=== PATIENT | female | born 1960 | race African-American/Black ===

== ENCOUNTER 2018-05-11 11:19 | Emergency (ER) | payer OTHER ==
[~2018-05-11] VITALS: Ht 160 cm; Wt 65.8 kg
[2018-05-11 11:44] VITALS: BP 173/82
[2018-05-11] MEDS: TETRACAINE 0.5% OPHTH SOLUTION 4ML BOTTLE. OS ONE (12:26)
[2018-05-11] MEDS: PROPARACAINE/FLUORESCEIN 0.5 ML OPHTH DROPS. OS ONE (12:26)
[2018-05-11] MEDS ORDERED: ERYT1OIN6 LEFTEYE (12:36)
[2018-05-11] MEDS ORDERED: HYDR-2761 PO (12:36)
--- NOTE | 2018-05-11 12:36 | PHYS DOC ---
Past Medical History Past Medical History: Hypertension Past Surgical History: , Hysterectomy, Other Additional Past Surgical Histo: Tumor R)breast Alcohol Use: Occasionally Drug Use: None Adult General Chief Complaint Chief Complaint: EYE PROBLEMS HPI HPI Patient is a 58 year old AA female who presents to the ER with complaints of left eye pain and tearing after being hit in the left eye with keys yesterday at work. Pt states that her vision is not changes, but reports blurring due to excessive tearing. She denies any injury to her R eye. She denies any crusting of her eyes after sleeping. CUrrently she rates her pain as 7/10. Review of Systems Review of Systems Constitutional: Denies fever or chills [] Eyes: See HPI HENT: Denies nasal congestion or sore throat [] Respiratory: Denies cough or shortness of breath [] Integument: Denies rash or skin lesions [] Neurologic: Denies headache, focal weakness or sensory changes [] Complete systems were reviewed and found to be within normal limits, except as documented in this note. Current Medications Current Medications Current Medications Medications (Trade) Dose Ordered Sig/[place] Start Time Stop Time Status Last Admin Dose Admin Erythromycin (Romycin) 0.25 inch 1X ONCE 05/11/18 12:45 05/11/18 12:46 DC 05/11/18 12:56 0.25 INCH Proparacaine HCl/ Fluorescein Sodium (Flucaine Eye Drops) 1 drop 1X ONCE 05/11/18 12:30 05/11/18 12:31 DC 05/11/18 12:26 1 DROP Tetracaine HCl (Tetracaine) 1 drop 1X ONCE 05/11/18 12:30 05/11/18 12:31 DC 05/11/18 12:26 1 DROP Allergies Allergies Allergies Coded Allergies Type Severity Reaction Last Updated Verified No Known Drug Allergies 08/16/15 No Physical Exam Physical Exam Constitutional: Well developed, well nourished, no acute distress, non-toxic appearance. [] HENT: Normocephalic, atraumatic, bilateral external ears normal, oropharynx moist, no oral exudates, nose normal. [] Eyes: PERRLA, EOMI, conjunctiva normal, no discharge. See fluorescein exam under procedures. [] Skin: Warm, dry, no erythema, no rash. [] Back: No tenderness, no CVA tenderness. [] Neurologic: Alert and oriented X 3, normal motor function, normal sensory function, no focal deficits noted. [] Psychologic: Affect normal, judgement normal, mood normal. [] Current Patient Data Vital Signs Vital Signs Date Time Temp Pulse Resp B/P (MAP) Pulse Ox O2 Delivery O2 Flow Rate FiO2 05/11/18 11:44 98.3 92 16 173/82 (112) 99 Room Air 98.3 EKG EKG [] Radiology/Procedures Radiology/Procedures []Using tetracaine and fluroscein the patient's eye was examined under Wood's lamp and an 1 mm area of uptake at approximately 6 o'clock was noted. Patient's ocular symptoms have stabilized while they have been evaluated in the department and are appropriate for outpatient work up. No evidence of ruptured globe, retinal detachment, acute angle closure glaucoma , or deep space infection. Plan for 24 hour ophthalmologic follow up. Course & Med Decision Making Course & Med Decision Making Pertinent Labs and Imaging studies reviewed. (See chart for details) Dx: corneal abrasion L eye Rx for erythromycin eye ointment and hydrocodone written. Follow up with eye doctor for reevaluation in 24-48 hours Patient verbalized an understanding of home care, medications, follow-up, and return to ED instructions and was in agreement with the plan of care. Staff Physician Addendum: I was working in the ER during the course of this patient's visit. I was available for consultation as needed, but I was not directly involved in the care of this patient. [] Dragon Disclaimer Dragon Disclaimer This electronic medical record was generated, in whole or in part, using a voice recognition dictation system. Departure Departure Impression: Primary Impression: Corneal abrasion, left Disposition: 01 HOME, SELF-CARE Condition: STABLE Referrals: NO PCP (PCP) Patient Instructions: Eye - Corneal Abrasion, [id number] Additional Instructions: Fill the prescriptions and use as directed. Advised to avoid wearing her fall slashes until pain has subsided. Follow-up with your eye doctor in the next 24- 48 hours for reevaluation. Return to the ER for symptoms worsen Scripts Hydrocodone Bit/Acetaminophen (HYDROCODONE-APAP 5-325 ) 1 Tab Tablet 1 TAB PO PRN Q6HRS PRN for PAIN for 2 Days, #8 TAB 0 Refills Prov: BOGLEO LAIRD APRN 05/11/18 Erythromycin Base (Erythromycin) 1 Gm Oint...g. 0.5 INCH LEFTEYE QID for 5 Days, #1 TUBE 0 Refills Prov: LEO DEJESUS APRN 05/11/18 Problem Qualifiers Primary Impression: Corneal abrasion, left Encounter type: initial encounter Qualified Codes: S05.02XA - Injury of conjunctiva and corneal abrasion without foreign body, left eye, initial encounter LEO DEJESUS APRN May 11, 2018 12:36 ZARIA VASQUEZ MD May 12, 2018 06:09
[2018-05-11] MEDS: ERYTHROMYCIN 0.5% OPHTH OINTMENT 1GM TUBE. OS ONE (12:56)
== END 2018-05-11 13:09 | disposition home or self-care (01) ==
LOC: ER 11:19
DX: S05.02XA Injury of conjunctiva and corneal abrasion without foreign body, left eye, initial encounter (principal); I10 Essential (primary) hypertension; W22.8XXA Striking against or struck by other objects, initial encounter; Y99.8 Other external cause status; Y92.69 Other specified industrial and construction area as the place of occurrence of the external cause; Y99.0 Civilian activity done for income or pay
CPT/HCPCS: 99283

== ENCOUNTER 2019-03-18 11:00 | Emergency (ER) | payer OTHER ==
[~2019-03-18] VITALS: Ht 160 cm; Wt 67.6 kg
[~2019-03-18 11:00] MED LIST: ERYT1OIN6 LEFTEYE; HYDR-2761 PO
[2019-03-18 11:27] VITALS: BP 177/84
[2019-03-18 11:40] LABS: BILIRUBIN,URINE NEGATIVE (NEG); CLARITY,URINE CLEAR; COLOR,URINE YELLOW; NITRITE,URINE NEGATIVE (NEG); PROTEIN,URINE NEGATIVE (NEG-TRACE)
[2019-03-18 11:46] LABS: SQUAMOUS EPITHELIAL CELL,UR MANY /LPF
[2019-03-18 11:47] LABS: BACTERIA,URINE MODERATE /HPF (0-FEW); RBC,URINE OCC /HPF (0-2)
--- NOTE | 2019-03-18 13:08 | RAD ---
CLINICAL HISTORY: Pain, spinal tendernesss COMPARISON: None available. TECHNIQUE: This CT study consists of contiguous axial images performed through the thoracic and lumbar spine. Sagittal and coronal reformatted images were also performed. FINDINGS: There is normal alignment of the spine. There is preservation of height of the vertebral bodies with normal bone density. The height of the intervertebral discs is maintained. There is no evidence of osseous spinal canal or neural foraminal stenosis. 4 mm pleural-based right lower lobe lung nodules (series 2 image 54, 67). A 2.6 cm left thyroid nodule is seen. This can be further assessed by thyroid ultrasound. A 1.8 cm exophytic left upper pole renal lesion is seen. Aortic calcifications are noted. IMPRESSION: 1. No evidence for acute fracture or subluxation. 2. A 2.6 cm left thyroid nodule is seen. This can be further assessed by thyroid ultrasound. Electronically signed by: William Funk MD (03/18/2019 1:06 PM) [facility]
[2019-03-18] MEDS ORDERED: KETOROLAC 60 MG/2 ML VIAL. IM ONE (13:30)
[2019-03-18] MEDS ORDERED: CYCL5TAB PO (13:55)
--- NOTE | 2019-03-18 13:56 | PHYS DOC ---
Past Medical History Past Medical History: Hypertension (MOUNIKACOLUMBA FANDANIELAEULALIA Perry APRN) Past Surgical History: , Hysterectomy, Other Additional Past Surgical Histo: Tumor R)breast (COLUMBA MAHMOODEULALIA Perry APRN) Alcohol Use: Occasionally Drug Use: None (MOUNIKAMITADANIELA Perry APRN) Adult General Chief Complaint Chief Complaint: BACK PAIN OR INJURY [facility] HPI Patient is a 59 year old female who presents with severe back pain. She states that she helped roll her mother, who is in the hospital, and her back pain has been increasing ever since. She denies spontaneous loss of bowel or bladder, saddle numbness or foot drop. She has tried taking [id number] analgesics with little relief. She feels like she has a spasming pain in her back. (TIMOTEOCOLUMBADANIELAEULALIA Perry APRN) Review of Systems Review of Systems Constitutional: Denies fever or chills [] Respiratory: Denies cough or shortness of breath [] Cardiovascular: No additional information not addressed in HPI [] GI: Denies abdominal pain, nausea, vomiting, bloody stools or diarrhea [] : Denies dysuria or hematuria [] Musculoskeletal: See history of present illness Integument: Denies rash or skin lesions [] Neurologic: Denies headache, focal weakness or sensory changes [] Endocrine: Denies polyuria or polydipsia [] All other systems were reviewed and found to be within normal limits, except as documented in this note. (CHANTEL MAHMOODFRIEDA Perry APRN) Current Medications Current Medications Current Medications Medications (Trade) Dose Ordered Sig/[facility] Start Time Stop Time Status Last Admin Dose Admin Ketorolac Tromethamine (Toradol Im) 60 mg 1X ONCE 03/18/19 13:30 03/18/19 13:31 DC 03/18/19 13:52 60 MG (ZARIA VASQUEZ MD) Allergies Allergies Allergies Coded Allergies Type Severity Reaction Last Updated Verified No Known Drug Allergies 08/16/15 No (ZARIA VASQUEZ MD) Physical Exam Physical Exam Constitutional: Well developed, well nourished, no acute distress, non-toxic appearance. [] Neck: Normal range of motion, no tenderness, supple, no stridor. [] Cardiovascular:Heart rate regular rhythm, no murmur [] Lungs & Thorax: Bilateral breath sounds clear to auscultation [] Abdomen: Bowel sounds normal, soft, no tenderness, no masses, no pulsatile masses. [] Skin: Warm, dry, no erythema, no rash. [] Back: Point spinal tenderness to her lumbar and thoracic spine noted, there is pain to her accessory muscles as well, no CVA tenderness. [] Extremities: No tenderness, no cyanosis, no clubbing, ROM intact, no edema. [] Neurologic: Alert and oriented X 3, normal motor function, normal sensory function, no focal deficits noted. [] Psychologic: Affect normal, judgement normal, mood normal. [] (DANIELA MAHMOOD APRN) Current Patient Data Vital Signs Vital Signs Date Time Temp Pulse Resp B/P (MAP) Pulse Ox O2 Delivery O2 Flow Rate FiO2 03/18/19 11:27 98.6 75 20 177/84 (115) 97 Room Air 98.6 (ZARIA VASQUEZ MD) Lab Values Laboratory Tests Test 03/18/19 11:25 Urine Collection Type Unknown Urine Color Yellow Urine Clarity Clear Urine pH 7.0 Urine Specific [place] 1.020 Urine Protein Negative mg/dL (NEG-TRACE) Urine Glucose (UA) Negative mg/dL (NEG) Urine Ketones (Stick) Negative mg/dL (NEG) Urine Blood Negative (NEG) Urine Nitrite Negative (NEG) Urine Bilirubin Negative (NEG) Urine Urobilinogen Dipstick 1.0 mg/dL (0.2 mg/dL) Urine Leukocyte Esterase Negative (NEG) Urine RBC Occ /HPF (0-2) Urine WBC 1-4 /HPF (0-4) Urine Squamous Epithelial Cells Many /LPF Urine Bacteria Moderate /HPF (0-FEW) Urine Mucus Mod /LPF (ZARIA VASQUEZ MD) EKG EKG [] (DANIELA MAHMOOD APRN) Radiology/Procedures Radiology/Procedures []PATIENT: RULA DE OLIVEIRACOUNT: [id number]#: [id number] : 1960 LOCATION: ER AGE: 59 SEX: F EXAM STATUS: REG ER ORD. PHYSICIAN: DANIELA MAHMOOD APRN REASON: point spinal tenderness PROCEDURE: CT LUMBAR SPINE WO CONTRAST CLINICAL HISTORY: Pain, spinal tendernesss COMPARISON: None available. TECHNIQUE: This CT study consists of contiguous axial images performed through the thoracic and lumbar spine. Sagittal and coronal reformatted images were also performed. FINDINGS: There is normal alignment of the spine. There is preservation of height of the vertebral bodies with normal bone density. The height of the intervertebral discs is maintained. There is no evidence of osseous spinal canal or neural foraminal stenosis. 4 mm pleural-based right lower lobe lung nodules (series 2 image 54, 67). A 2.6 cm left thyroid nodule is seen. This can be further assessed bPATIENT: RULA DE OLIVEIRACOUNT: [id number]#: [id number] : 1960 LOCATION: ER AGE: 59 SEX: F EXAM STATUS: REG ER ORD. PHYSICIAN: DANIELA MAHMOOD APRN REASON: point spinal tenderness PROCEDURE: CT THORACIC SPINE WO CONTRAST CLINICAL HISTORY: Pain, spinal tendernesss COMPARISON: None available. TECHNIQUE: This CT study consists of contiguous axial images performed through the thoracic and lumbar spine. Sagittal and coronal reformatted images were also performed. FINDINGS: There is normal alignment of the spine. There is preservation of height of the vertebral bodies with normal bone density. The height of the intervertebral discs is maintained. There is no evidence of osseous spinal canal or neural foraminal stenosis. 4 mm pleural-based right lower lobe lung nodules (series 2 image 54, 67). A 2.6 cm left thyroid nodule is seen. This can be further assessed by thyroid ultrasound. A 1.8 cm exophytic left upper pole renal lesion is seen. Aortic calcifications are noted. IMPRESSION: 1. No evidence for acute fracture or subluxation. 2. A 2.6 cm left thyroid nodule is seen. This can be further assessed by thyroid ultrasound. Electronically signed by: William Choudhury MD (03/18/2019 1:06 PM) [facility] DICTATED and SIGNED BY: WILLIAM CHOUDHURY MD DATE: 03/18/19 1306 y thyroid ultrasound. A 1.8 cm exophytic left upper pole renal lesion is seen. Aortic calcifications are noted. IMPRESSION: 1. No evidence for acute fracture or subluxation. 2. A 2.6 cm left thyroid nodule is seen. This can be further assessed by thyroid ultrasound. Electronically signed by: William Choudhury MD (03/18/2019 1:06 PM) [facility] DICTATED and SIGNED BY: WILLIAM CHOUDHURY MD DATE: 03/18/19 2843 (DANIELA MAHMOOD APRN) Course & Med Decision Making Course & Med Decision Making Pertinent Labs and Imaging studies reviewed. (See chart for details) []CT scan of the spine does not show any acute abnormality. The patient was given Toradol in the emergency department for her pain. She is to follow-up with her primary care provider. She was given cyclobenzaprine to help with the back spasming at home. She should not drive or operate heavy machinery until she knows how she reacts to the cyclobenzaprine. (DANIELA MAHMOOD APRN) Course & Med Decision Making Staff Physician Addendum: I was working in the ER during the course of this patient's visit. I was available for consultation as needed, but I was not directly involved in the care of this patient. (ZARIA VASQUEZ MD) Dragon Disclaimer Dragon Disclaimer This electronic medical record was generated, in whole or in part, using a voice recognition dictation system. (DANIELA MAHMOOD APRN) Departure Departure Impression: Primary Impression: Back pain Disposition: HOME, SELF-CARE Condition: STABLE Referrals: NO PCP (PCP) Patient Instructions: Back Pain, Adult Additional Instructions: Take the medication as directed. Follow-up with her primary care provider in 2 days if not improving or return to the emergency department if worsening. Scripts Cyclobenzaprine Hcl (CYCLOBENZAPRINE HCL) 5 Mg Tablet 1 TAB PO QHS for back pain, #15 TAB Prov: DANIELA MAHMOOD APRN 03/18/19 DANIELA MAHMOOD APRN Mar 18, 2019 13:56 ZARIA VASQUEZ MD Mar 19, 2019 16:18
== END 2019-03-18 13:58 | disposition home or self-care (01) ==
LOC: ER 11:00
DX: M54.6 Pain in thoracic spine (principal); M54.5 Low back pain; I10 Essential (primary) hypertension; Z90.710 Acquired absence of both cervix and uterus; Z98.890 Other specified postprocedural states
CPT/HCPCS: 72128; 72131; 81001; 87086; 96372; 99285; J1885